=== PATIENT | female | born 1930 | race Caucasian/White ===

== ENCOUNTER 2016-09-21 20:04 | Emergency (ER) | payer MEDICARE, OTHER ==
[~2016-09-21] VITALS: Ht 170.2 cm; Wt 68.0 kg
[~2016-09-21 20:04] MED LIST: ACETAMINOPHEN325 M1 PO; ALENDRONATE SOD70 MG PO; ATIVAN0.5 MG PO; CALCIUM + VITA1 EACH PO; CALCIUM 600 +1 EACH PO; CEPHALEXIN500 MG PO; COLACE100 MG PO; DELTASONE20 MG PO; DOK100 MG PO; FENTANYL1 EAC1 TD; FERROUS SULFAT325 MG PO; HALOPERIDOL0.5 MG PO; HYDROCODON-ACE1 EA10 PO; HYDROCODON-ACE1 EAC3 PO; IRON55 MG PO; LEVAQUIN500 MG PO; LYRICA75 MG PO; MAGNESIUM OXID400 MG PO; MULTIVITAMINS1 EAC7 PO; NAPROSYN375 MG PO; NAPROXEN375 MG PO; NEOSPORIN OINTM30 GM TP; NITROSTAT0.4 MG SL; NYSTOP60 GM TP; OMEPRAZOLE40 MG PO; OXYCODONE HCL5 MG PO; OXYCODONE-ACET1 EAC3 PO; PEPCID40 MG PO; STOOL SOFTENER100 MG PO; TRAZODONE HCL50 MG PO; TRIAMCINOLONE A15 G2 TOP; VITAMIN D31000 UNI1 PO; ZOFRAN ODT4 MG PO
[2016-09-21] MEDS ORDERED: NORVASC5 MG PO (20:19)
[2016-09-21] MEDS ORDERED: SERTRALINE HCL100 MG PO (20:20)
[2016-09-21] MEDS ORDERED: ACID CONTROL150 MG PO (20:20)
[2016-09-21] MEDS ORDERED: SENNA-DOCUSATE1 EAC1 PO (20:21)
[2016-09-21] MEDS ORDERED: MILK OF MA400 MG/5 M PO (20:22)
[2016-09-21] MEDS ORDERED: CLINDAMYCIN HC150 MG PO (20:28)
[2016-09-24] MEDS ORDERED: FOSAMAX70 MG PO (16:57)
[2016-09-24] MEDS ORDERED: NAPROSYN500 MG PO (16:58)
[2016-09-24] MEDS ORDERED: MELATONIN3 MG PO (17:00)
[2016-09-24] MEDS ORDERED: TYLENOL WITH C1 EACH PO (17:03)
[2016-09-24] MEDS ORDERED: D3 DOTS2000 UNIT PO (17:05)
== END 2016-09-21 20:41 | disposition home or self-care (01) ==
LOC: ED 20:04
DX: D23.72 Other benign neoplasm of skin of left lower limb, including hip (principal); L08.89 Other specified local infections of the skin and subcutaneous tissue; F03.90 Unspecified dementia, unspecified severity, without behavioral disturbance, psychotic disturbance, mood disturbance, and anxiety
CPT/HCPCS: 99283

== ENCOUNTER 2016-09-25 08:40 | Day surgery (SDC) | payer MEDICARE, OTHER ==
[~2016-09-25] VITALS: Ht 170.2 cm; Wt 71.7 kg
[~2016-09-25 08:40] MED LIST changes: +ACID CONTROL150 MG PO; +CLINDAMYCIN HC150 MG PO; +D3 DOTS2000 UNIT PO; +FOSAMAX70 MG PO; +MELATONIN3 MG PO; +MILK OF MA400 MG/5 M PO; +NAPROSYN500 MG PO; +NORVASC5 MG PO; +SENNA-DOCUSATE1 EAC1 PO; +SERTRALINE HCL100 MG PO; +TYLENOL WITH C1 EACH PO
--- NOTE | 2016-09-25 09:58 | NUR ---
assisted up to bsc voids small amt urine. returned to bed.
--- NOTE | 2016-09-25 10:02 | NUR ---
PT IS VERY ALERT, ORIENTED AND SPUNKY. SHE IS SUPPORTED BY HER 2 GRAND D-TOSHIA AND PATRIZIA. SHE WAS READY FOR THE DR TO COME NOW, AND WANTED TO GO. SHE EXPRESSED MILD UNHAPPINESS THAT SHE COULDN'T KEEP THE LESION BEING REMOVED TODAY. SHE HAS QUITE A SENSE OF HUMOR. PT DECLINED PRAYER. WILL FOLLOW NEEDED
--- NOTE | 2016-09-25 11:41 | NUR ---
PT ARRIVED TO DEPT PER WC. 2 GRANDDAUGHTERS ACCOMPANYING AND HELPING WITH ASSISTANCE.
--- NOTE | 2016-09-25 12:58 | NUR ---
09/25/16 1258 Lidya Chandra 1257 PATIENT ARRIVES TO PACU UNRESPONSIVE TO VERBAL OR TACTILE STIMULI. MASK AT 6 LITERS.
[2016-09-25] MEDS ORDERED: NORCO 5-325 TA1 EACH PO (13:47)
--- NOTE | 2016-09-25 14:46 | NUR ---
HAS TAKEN GLASS WATER AND ATE JELLO. DENIES PAIN OR NAUSEA. REQ TO GO HOME. UP TO BSC VOIDS QS. ASSISTED WITH DRESSING. ALBATERS HERE AND PT TO WC.
--- NOTE | 2016-09-28 08:50 | OR ---
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 PROCEDURE: Wide local excision of left thigh pleomorphic dermal sarcoma (9x 12 cm). ESTIMATED BLOOD LOSS: None. BRIEF HISTORY/INDICATIONS FOR PROCEDURE: Noah an 86-year-old female with significant dementia. In 2013, she had a skin lesion on the left in her midthigh. Her excisional biopsy came back up pleomorphic dermal sarcoma. The deep margin was positive. She was asked to see me in the office. I had a long talk with Tereso and her daughter and we all agreed that we would re-excise it under local anesthetic in the office. Generally, we would do this through a vertical incision, but because of her previous transverse incision, we opted to repeat transverse incision. The margins were closed. After a long discussion in the office, we again decided we would watch that area and come back and re-excise if necessary. In the meantime, she was moved over to [facility], one of our adult homes for people with dementia. The lesion had recurred, and unfortunately, it was 6 cm in diameter when it was brought up to the family. She had been back to her primary care provider who asked to come and see me once again. I explained to Tereso and her two granddaughters that this obviously was too large to excise in the office. Tereso does not seem to complain about it too much, but it is large enough it is rubbing on her leg and it was felt it would probably be gu to go ahead and excise it. We decided that we would have to do this over in the main OR under anesthesia with good lighting so we can develop skin flaps and so forth. I explained to Tereso and her granddaughters that of course there is risk to the surgery including but not limited to bleeding, infection, scarring, change in contour of the skin, as well as a recurrent pleomorphic dermal sarcoma in the same or another location. They had expressed their understanding and wished to proceed. DESCRIPTION OF PROCEDURE: I met with Tereso and her two granddaughters along with our nurse in our preoperative area. It was very easy obviously to see this lesion that is large, almost the size of a tennis ball. We marked out it appropriately. Tereso Electronically Signed By: NOEMI ROGERS MD 09/28/16 0850 PATIENT NAME: TERESO CHUA OPERATIVE REPORT DATE OF : 28 PHYSICIAN: NOEMI ROGERS MD REPORT #: [id number] REPORT IS CONFIDENTIAL AND NOT TO BE RELEASED WITHOUT AUTHORIZATION [facility] [address] [place] [id number] Signed was then taken to the operating room and placed in the supine position with appropriate padding and monitoring. She was placed under general anesthesia with LMA. She was given preoperative antibiotics along with subcutaneous heparin. SCDs were utilized on the opposite leg. We propped the left leg up with pillows and it was prepped and draped in the usual sterile fashion. The lesion measured 6 cm transversely so we gave her 1.5 cm margins on either side and developed our incision vertically along the length of the inner thigh about 12 cm. The wound was then developed with a knife and carried down through the soft tissues all the way down to the fascia with the help of the cautery. Thus, all the tissue was removed right down to the fascia overlying the muscle. After this, we developed the midportion of each skin edge with the cautery along the edge of the fascia to develop a flap. We had marked the specimen as well and passed it off the field. We had injected local anesthetic along the length of the incision. The wound was irrigated and suctioned out until clear. We then brought the dermis together with interrupted 3-0 Monocryl sutures. The skin edges were reapproximated with a running 6-0fast absorbing plain gut suture. Dry gauze was applied over the incision. We wrapped her thigh gently with a 4-inch Paco wrap. After this, Tereso was awakened from her anesthesia and extubated in the OR and taken to the recovery room in stable condition. MD JENNY Vallejo/Nola /[id number] cc: Dr. Eze Rogers MD Electronically Signed By: NOEMI ROGERS MD 09/28/16 0850 PATIENT NAME: TERESO CHUA OPERATIVE REPORT DATE OF : 29 PHYSICIAN: NOEMI ROGERS MD REPORT #: [id number] REPORT IS CONFIDENTIAL AND NOT TO BE RELEASED WITHOUT AUTHORIZATION
== END 2016-09-25 14:45 | disposition home or self-care (01) ==
LOC: OPS 08:40 → DS 08:40 → OPS 10:45 → DS 10:45 → OPS 14:45
PROVIDERS: Colon & Rectal Surgery
PROC: 0JBM0ZZ Excision of Left Upper Leg Subcutaneous Tissue and Fascia, Open Approach (ICD-10-PCS; principal; 2016-09-25 10:45)
DX: C49.22 Malignant neoplasm of connective and soft tissue of left lower limb, including hip (principal); K21.9 Gastro-esophageal reflux disease without esophagitis; M81.0 Age-related osteoporosis without current pathological fracture; M19.90 Unspecified osteoarthritis, unspecified site; G43.909 Migraine, unspecified, not intractable, without status migrainosus; G89.29 Other chronic pain; M79.7 Fibromyalgia; F03.90 Unspecified dementia, unspecified severity, without behavioral disturbance, psychotic disturbance, mood disturbance, and anxiety; G47.00 Insomnia, unspecified; F32.9 Major depressive disorder, single episode, unspecified; F41.9 Anxiety disorder, unspecified; D64.9 Anemia, unspecified; Z90.89 Acquired absence of other organs; Z87.440 Personal history of urinary (tract) infections; Z90.49 Acquired absence of other specified parts of digestive tract; Z90.710 Acquired absence of both cervix and uterus; Z98.890 Other specified postprocedural states; Z88.0 Allergy status to penicillin; Z88.2 Allergy status to sulfonamides; Z88.1 Allergy status to other antibiotic agents
CPT/HCPCS: 01250; 88307; J0690; J1644; J2250; J3010; J7120

== ENCOUNTER 2018-06-20 14:29 | Emergency (ER) | payer MEDICARE, OTHER ==
[~2018-06-20] VITALS: Ht 170.2 cm; Wt 71.7 kg
[~2018-06-20 14:29] MED LIST changes: +NORCO 5-325 TA1 EACH PO
== END 2018-06-20 15:55 | disposition home or self-care (01) ==
LOC: ED 14:29
DX: Z04.3 Encounter for examination and observation following other accident (principal); F03.90 Unspecified dementia, unspecified severity, without behavioral disturbance, psychotic disturbance, mood disturbance, and anxiety; Z88.0 Allergy status to penicillin; Z88.5 Allergy status to narcotic agent; Z88.8 Allergy status to other drugs, medicaments and biological substances; Z79.899 Other long term (current) drug therapy
CPT/HCPCS: 99283

== ENCOUNTER 2018-08-04 21:32 | Inpatient (IN) | payer MEDICARE, OTHER ==
[~2018-08-04] VITALS: Ht 170.2 cm; Wt 61.5 kg
[~2018-08-04 21:32] MED LIST changes: -SERTRALINE HCL100 MG PO; +SERTRALINE HCL50 MG PO
[2018-08-04] MEDS ORDERED: ACETAMINOPHEN500 M1 PO (22:13)
--- NOTE | 2018-08-05 00:10 | NUR ---
RECEIVED PT FROM ED VIA STRETCHER. TRANSFERRED TO BED USING HOVER MAT AND 4 PERSON ASSIST. PT MOANING AND C/O LEFT HIP PAIN. POSITINED PT WITH PILLOWS TO MAINTAIN ALIGNMENT. CANELA PATENT DRAINING YELLOW URINE. HEEL PROTECTORS PLACED. GRANDDAUGHTER, JUNE IN THE ROOM. SIDE RAILS UP FOR PT SAFETY. CALL LIGHT IN REACH.
--- NOTE | 2018-08-05 00:55 | NUR ---
PATIENT REPORTS 15/10 PAIN IN HER LEFT HIP. PATIENT GIVEN PRN PAIN MEDICATION PER ORDER. PATIENT REPOSITIONED IN BED. PATIENTS CHARI REMAINS ON THE ROOM. IV IN FUSING. CALL LIGHT IN REACH.
--- NOTE | 2018-08-05 02:24 | NUR ---
PT RESTING IN BED WITH EYES CLOSED. RR 16 CPOX 98% O2 1LNC IN PLACE. CALL LIGHT IN REACH.
--- NOTE | 2018-08-05 05:01 | NUR ---
PATIENTS VITALS TAKEN RECORDED. CANELA EMPTIED AND OUPUT RECORDED. PATIENT REMAINS NPO. PATIENT REMAINS ON 1L VIA NC. CPOX IN USE. STUDENT RN IN ROOM TO ADMIN PRN PAIN MEDICATION FOR "25/10 PAIN IN HER HIP".
--- NOTE | 2018-08-05 05:14 | NUR ---
IN TO CHECK ON PT, SEEMED TO BE RESTING COMFORTABLY UNTIL SHE TRIED TO REPOSITION HERSELF. PT STATES PAIN IS 25/10 IN THE LEFT HIP. PRN PAIN MEDICATION ADMINISTERED. PT ORIENTED TO SELF ONLY. REMINDED PT THAT SHE FELL LAST NIGHT AND BROKE HER HIP. CPOX READS 98% ON 1L NC. RR 17, EVEN AND UNLABORED. CALL LIGHT IN REACH.
--- NOTE | 2018-08-05 06:01 | NUR ---
PT RESTED WELL SINCE ARRIVING TO THE FLOOR. PT ON BED REST. PRN PAIN MEDICATION X 2. CANELA PATENT. PATIENT ORIENTED TO SELF, NOT PLACE OR TIME.
--- NOTE | 2018-08-05 07:44 | NUR ---
REPORT RECIEVED, PT STATES HER PAIN IS BAD AND SHE WAS MEDICATED ORDERED. CPOX REMAINS IN PLACE AND HER SAT IS 98%. CALL MOFFETT IS WITHIN REACH AND HER CALL MOFFETT WAS TURNED ON.
--- NOTE | 2018-08-05 08:12 | NUR ---
PT RESTING IN BED AND WAS JUST SEEN BY DR MOFFETT. PT STATES HER PAIN HAS IMPROVED SINCE SHE WAS LAST MEDICATED FOR PAIN. BED ALARM IS ON AND CALL BETINA WITHIN REACH.
--- NOTE | 2018-08-05 08:19 | NUR ---
CALLED TO NOTIFY OF CONSULT FOR POSSIBLE SURGERY LATER THIS AM.
--- NOTE | 2018-08-05 09:25 | NUR ---
ENID SHOLA CALLED TO GIVE TELEPHONE CONSENT FOR SURGERY SHE IS [place]A AND OUT OF STATE. NEID SAID OK TO UPDATE JUNE HER DAUGHTER, SHE WILL STAY IN COMMUNICATION.
--- NOTE | 2018-08-05 11:14 | NUR ---
PT TAKEN TO THE OR AT THIS TIME.
--- NOTE | 2018-08-05 13:04 | NUR ---
VISITED WITH PT BEFORE SURGERY. SHE HAS A LITTLE SPUNK AND LIKES TO JOKE. SHE WAS NOT JOKING HOWEVER WHEN IT CAME TO HER PAIN, SHE SAID IT WAS BAD. I MENTIONED TO HOLLIE MALDONADO-SHE MENTIONED THAT OR STAFF WILL BE IN SOON AND HELP WITH PT'S PAIN. I TOLD HER THAT HELP WILL ARRIVE SOON. SHE SMILED AND SAID, "WILL IT BE A BIG GLASS OF BEER"? HAD PRAYER WITH PT, WILL FOLLOW NEEDED
--- NOTE | 2018-08-05 13:44 | NUR ---
08/05/18 1344 Sheets,[place] 1323 PT ARRIVED TO PACU ON 6L VIA MASK, RESP EVEN AND UNLABORED. VSS. 1338 PT WAKES TO TACTILE STIMULI AND DENIES PAIN. O2 SAT 100%, O2 MASK REMOVED. 1343 WARM BLACKET GIVEN. PT REPORT PAIN, UNABLE TO RATE, REPORTS "PLENTY."
--- NOTE | 2018-08-05 14:21 | NUR ---
PATIENT IS IN SURGERY.
--- NOTE | 2018-08-05 15:10 | NUR ---
1440: PT RETURNED TO MED-SURG POST SURGERY AND PACU STAY. PT DROWSY, AWAKENS BREIFLY AND FALLS RIGHT BACK TO SLEEP. LEFT HIP DRESSING CDI X2 WITH ICE IN PLACE, SCD'S ON AND RUNNING, HEEL PROTECTORS PLACED. PULSE OX REPLACED AND VITAL SIGNS CHECKED. SAT ON ROOM AIR IS 93% ON 2L VIA NC. PEDAL PULSE IS WEAK BUT PRESENT AND THE SAME ON THE RIGHT FOOT. PT APPEARS IN NO DISTRESS AT THIS TIME. CANELA TO GRAVITY, BED ALARM TURNED ON AND CALL MOFFETT WITHIN REACH, BED IN THE LOW POSITION.
--- NOTE | 2018-08-05 15:50 | NUR ---
PT AWAKES TO VOICE AND DENIES ANY PAIN. CMS INTACT ON HER LEFT FOOT AND A PEDAL PULSE NOTED.PT'S GRANDAUGHTER AT BEDSIDE.
--- NOTE | 2018-08-05 15:52 | NUR ---
DRESSINGS REMAIN CDI TO HER LEFT HIP.
--- NOTE | 2018-08-05 16:36 | NUR ---
PT'S BP CONTINUES RUNNING LOW. DR GORDILLO NOTIFIED AND NEW ORDERS GIVEN.
--- NOTE | 2018-08-05 16:52 | EKG ---
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
--- NOTE | 2018-08-05 16:52 | EKG ---
[facility] [address] [place] [address] Signed Sinus rhythm with premature atrial complexes Left axis deviation Minimal voltage criteria for LVH, may be normal variant Septal infarct (cited on or before 18-SEP-2016) Possible Lateral infarct , age undetermined Abnormal ECG When compared with ECG of 18-SEP-2016 11:49, premature atrial complexes are now present Borderline criteria for Lateral infarct are now present Confirmed by BRIAN GORDILLO MD ([id number]) on 08/05/2018 4:52:36 PM Electronically Signed By: BRIAN GORDILLO MD 08/05/18 1652 PATIENT NAME: TERESO CHUA Electrocardiogram DATE OF : 28 PHYSICIAN: BRIAN GORDILLO MD REPORT #: [id number] REPORT IS CONFIDENTIAL AND NOT TO BE RELEASED WITHOUT AUTHORIZATION
--- NOTE | 2018-08-05 17:33 | NUR ---
PT DENIES ANY HIP PAIN AT THIS TIME. LR BOLUS COMPLETE AND IV NOW RUNNING LR AT 125ML/HR.
--- NOTE | 2018-08-05 17:43 | NUR ---
URINE OUTPUT 140ML, PT ALSO HAD 125 ML IN PACU. PT JUST RECEIVED A FLUID BOLUS AND IS NOW HAVING HER FIRST PO FLUIDS POST-OP.
--- NOTE | 2018-08-05 19:41 | NUR ---
REPORT RECEIVED, PT ALERT, RESTING IN BED WATCHING TV, IV FLUIDS INFUSING PER EMAR WNL, ON 2LNC, NO C/O SOB/CP, ON CPOX, O2 SAT 97%, HR 77, SURGICAL SITE VISUALIZED, DRESSING C/D/I, NO SIGNS OF DRAINAGE, ICE APPLIED TO AREA. NO C/O PAIN. NO REQUESTS AT THIS TIME, CALL LIGHT WITHIN REACH. BED ALARM ON.
--- NOTE | 2018-08-05 20:45 | NUR ---
IN ROOM TO ADMINISTER EVENING MEDS, PT AOX4, APPROPRIATE, PT TOLERATED PO MEDS, WELL. SCHEDULED PAIN MEDICINE PROVIDED, PT DID NOT RATE PAIN HOWEVER STATED "ITS THERE, MOSTLY IN MY BACK", PT'S VITALS TAKEN, PT'S BP NOTED TO BE 94/59, HR 72, DR. GORDILLO NOTIFIED OF PT'S BP, DR. GORDILLO STATED TO CONTINUE TO MONITOR WELL MONITOR URINE AND TO NOTIFY HIM IF PT DOES NOT VOID 2cc/KG EVERY FOUR HOURS. ASSESSMENT COMPLETE, PT'S LS CLEAR, DIMINISHED ON LEFT SIDE. PT ENCOURAGED TO CDB, SURGICAL SITE VISUALIZED, C/D/I, HEEL PROTECTORS ON, SCD'S ON. NO REQUESTS AT THIS TIME, CALL LIGHT WITHIN REACH. BED ALARM ON.
--- NOTE | 2018-08-05 23:00 | NUR ---
PT RESTING IN BED, EYES CLOSED, BREATHS EVEN, UNLABORED, ON 1LNC, O2 SAT WNL, IV FLUIDS INFUSING PER EMAR WNL. NO REQUESTS AT THIS TIME. BED ALARM ON.
--- NOTE | 2018-08-06 | NUR ---
PT RESTING IN BED VISITING WITH FAMILY, NO NEEDS AT THIS TIME, PT MORE CONFUSED, BUT ALERT, DISORIENTED TO SURROUNDINGS, CALL LIGHT WITHIN REACH. FALL PRECAUTIONS IN PLACE. IV FLUIDS INFUSING PER EMAR WNL. FALL PRECAUTIONS IN PLACE. BED ALARM ON.
--- NOTE | 2018-08-06 01:31 | NUR ---
PT PULLED OFF HER PULSE OX AND O2 NASAL CANNULA. I PUT BOTH BACK ON HER. PT NEEDS NOTHING MORE AT THIS TIME. BEDSIDE TABLE AND CALL LIGHT IN REACH.
--- NOTE | 2018-08-06 01:46 | NUR ---
IN ROOM TO ADMIN SCHEDULED MEDS, PT AWAKE, DISORIENTED, REORIENTATION PROVIDED, PT ASKING WHERE SHE IS AND WHY SHE IS HERE. PT'S FAMILY ABLE TO ASSIST IN REORIENTING PT WELL. PT WAS ABLE TO RATE PAIN, RATED PAIN 15/10, PT GIVEN PRN PAIN MEDICATION PER EMAR. IV FLUIDS INFUSING PER EMAR WNL. VSS, CALL LIGHT WITHIN REACH. BED ALARM ON.
--- NOTE | 2018-08-06 02:15 | NUR ---
IN ROOM TO ASSESS PT'S URINE OUTPUT, PT HAS ONLY HAD 20 MLS OF URINE OUT IN THE LAST 4 HOURS, CANELA CATHETER OPERATING WNL, BLADDER SCAN COMPLETE AND SHOWED 6ML'S. DR. GORDILLO CALLED AND NOTIFIED OF PT'S LOW URINE OUTPUI, RECEIVED AN ORDER FOR A 500 ML BOLUS TO BE ADMINISTERED OVER ONE HOUR AND TO CALL DR. GORDILLO BACK AFTER THE BOLUS IS COMPLETE WITH THE PT'S URINE OUTPUT OVER THAT ONE HOUR PERIOD. TORB.
--- NOTE | 2018-08-06 03:40 | NUR ---
IV BOLUS COMPLETE, PT VOIDED 5 ML AFTER IV BOLUS WAS COMPLETE, DR. GORDILLO NOTIFIED PER HIS REQUEST, DR. GORDILLO REQUESTED THAT THE PT'S CONTINUOUS RATE OF IV FLUIDS REMAIN THE SAME @ 125, AND THAT THE PT'S BP BE MONITORED AND IF THE PT'S SYSTOLIC BP BECOMES LOWER THAN 90 TO ADMINISTER A 500 ML BOLUS OF LR OVER AN HOUR AND TO RECHECK THE PT'S BP. IF THE PT'S SYSTOLIC BP REMAINS LOWER THAN 90 AFTER THE BOLUS THAN HE WOULD LIKE TO BE NOTIFIED, NO FURTHER ORDERS AT THIS TIME, TORB,
--- NOTE | 2018-08-06 04:55 | NUR ---
PT ALERT THIS SHIFT, SOME CONFUSION DURING LATE HOURS OF NIGHT RELATED TO SURROUNDINGS, PT ON RA NOW, CPOX IN PLACE, O2 SAT 94%, HR 70'S, PT'S BP HAS BEEN SOFT IN THE LOW 90'S SYSTOLIC, MD AWARE, CANELA CATH IN PLACE, PT HAS ALSO HAD VERY LOW URINE OUTPUT THIS SHIFT, MD AWARE, CONTINUING TO MONITOR BP AND UO. PT RECEIVING SCHEDULED TORADOL AND TYLENOL, PT RECEIVED PRN PAIN MEDICATION X1 THIS SHIFT RELATED TO LEFT HIP. INCISIONS IN LEFT HIP ARE C/D/I, SCD'S ON, HEEL PROTECTORS ON, CMS INTACT. BED ALARM ON.
--- NOTE | 2018-08-06 06:42 | NUR ---
DR. MOFFETT NOTIFIED AND UPDATED ON PT'S CONDITION RELATING TO PT'S LOW URINE OUTPUT AND HYPOTENSION. NO NEW ORDERS.
--- NOTE | 2018-08-06 07:10 | HP ---
[facility] [address] [place], [place] [address] Signed ADMISSION DATE: 08/04/2018 HISTORY OF PRESENT ILLNESS: Ms. Maza is an 88-year-old white female, resident of a local long-term care facility. She apparently tried to get out of bed without adequate assistance late last night and had a witnessed fall. After the fall, she had pain in her left hip and groin and was unable to ambulate. She was brought to the emergency room where x-rays revealed an intertrochanteric fracture of the left hip. At the present time, this appears to be her only complaint. PAST MEDICAL HISTORY: We will defer to the internal medicine weight loss sales consultant. She clearly has some level of dementia; however, she respond fairly appropriately to questioning today. CURRENT MEDICATIONS: The only medication I can find in her records provided is she takes Zofran intermittently. ALLERGIES: She has allergies to penicillin, morphine, oxycodone, amlodipine, and Cymbalta. PHYSICAL EXAMINATION: GENERAL: On examination, she is a pleasantly confused elderly white female, lying supine in bed. HEENT: Head, ears, eyes, nose, and throat do not show any evidence of craniofacial trauma. NECK: Nontender. CHEST AND ABDOMEN: Nontender and there is regular rhythm and the breath sounds appear equal. There are no abdominal findings. EXTREMITIES: The left leg is neither shortened nor externally rotated, but she is propped up on a couple of pillows and we elected not to move her around. She is able to move her toes on both feet and reports equal sensation in both feet. Her pedal pulses are difficult to discern on either side. IMAGING: Her x-rays were reviewed and they show an intertrochanteric fracture on the left. IMPRESSION: I discussed with Tereso and then via phone her granddaughter that our general recommendation is to stabilize this fracture surgically. I specifically explained to Electronically Signed By: MICHEL GEE MD 08/06/18 0710 PATIENT NAME: TERESO MAZA HISTORY AND PHYSICAL DATE OF : 28 REPORT #: [id number] PHYSICIAN: MICHEL GEE MD PCP: RAJ WALKER MD REPORT IS CONFIDENTIAL AND NOT TO BE RELEASED WITHOUT AUTHORIZATION [facility] [address] [place] [id number] Signed the daughter that the primary goal even in someone who is a minimal ambulator is for pain relief. I did explain to the daughter all the potential risks and comorbidities, particularly as they are associated with surgery on an 88-year-old. After explaining all the potential risks and complications, the granddaughter was comfortable with us proceeding with the hip pinning. I also explained this to Tereso and she said she thought it was okay to fixing, but she said she was afraid of refixing, she might just fall down and break it again. I told her I absolutely agree that fixing one broken hip is not a guarantee that she will not have subsequent injuries in the future. Michel Gee MD WFB/MODL /[id number] Copies: ~ Electronically Signed By: MICHEL GEE MD 08/06/18 0710 PATIENT NAME: TERESO MAZA HISTORY AND PHYSICAL DATE OF : 28 REPORT #: [id number] PHYSICIAN: MICHEL GEE MD PCP: RAJ WALKER MD REPORT IS CONFIDENTIAL AND NOT TO BE RELEASED WITHOUT AUTHORIZATION
--- NOTE | 2018-08-06 07:10 | OR ---
[facility] [address] [facility] [place], [place] [address] Signed DATE OF OPERATION: 08/05/2018 SURGEON: Michel Gee MD PREOPERATIVE DIAGNOSIS: Intertrochanteric fracture, left proximal femur. POSTOPERATIVE DIAGNOSIS: Intertrochanteric fracture, left proximal femur. PROCEDURE: Intramedullary nail fixation with a TFN nail. ANESTHESIA: General I think with a femoral block. SPECIMENS: None. COMPLICATIONS: None. ESTIMATED BLOOD LOSS: Minimal. WHAT WAS DONE: The patient was taken to the operating room. After anesthesia was induced, the patient placed on the fracture table and the fracture reduced with longitudinal traction and neutral rotation. 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 However, once we felt we got good AP and oblique views, the patient was prepped and draped in a routine sterile fashion. Incision was made at the tip of the greater trochanter and the curved awl was introduced. We then were able to introduce the guide opal and navigated down the femoral canal. We then reamed proximally with a large reamer. We then passed a 10 mm short TFN nail, secured it proximally with a 100 mm spiral blade and distally with a single 5.0 screw. This appeared to give us excellent alignment and position, both of the fracture fragment and internal fixation devices on the obliques and AP view. The wound was gently irrigated and closed in standard fashion. Sterile dressings applied. She was awakened and taken to recovery room where she arrived in stable condition. Counts were correct and antibiotic protocols were followed. Electronically Signed By: MICHEL GEE MD 08/06/18 0710 PATIENT NAME: TERESO CHUA OPERATIVE REPORT DATE OF : 28 REPORT #: [id number] PHYSICIAN: MICHEL GEE MD PCP: RAJ WALKER MD REPORT IS CONFIDENTIAL AND NOT TO BE RELEASED WITHOUT AUTHORIZATION [address] [place], [place] [address] Signed Michel Gee MD WFFrantz/MODL /[id number] Copies: ~ Electronically Signed By: MICHEL GEE MD 08/06/18 0710 PATIENT NAME: TERESO CHUA OPERATIVE REPORT DATE OF : 28 REPORT #: [id number] PHYSICIAN: MICHEL GEE MD PCP: RAJ WALKER MD REPORT IS CONFIDENTIAL AND NOT TO BE RELEASED WITHOUT AUTHORIZATION
--- NOTE | 2018-08-06 07:10 | NUR ---
BEDSIDE HANDOFF REPORT RECEIVED FROM CORE CLEANER RN. PT RESTING QUIETLY IN BED. BED ALARM IN PLACE.
--- NOTE | 2018-08-06 08:50 | NUR ---
PT RESTING IN BED. PT ALERT, DISORIENTED TO DATE AND PLACE, BED ALARM IN PLACE. PT ON ROOM AIR, LUNG SOUNDS CLEAR. PT DENIES PAIN . IV FLUIDS INFUSING LR AT 15 ML/HR, LOW URINE OUTPUT. CMS INTACT, WITHOUT EDEMA. PT DENIES NAUSEA, TOLERATING REGULAR DIET. DISCUSSED PLAN OF CARE FOR THE DAY. PT DENIES OTHER NEEDS AT THIS TIME.
--- NOTE | 2018-08-06 09:09 | NUR ---
PT CONTINUES TO HAVE LOW URINE OUTPOUT, 18 ML IN CATHETER SINCE 0600. MD NOTIFIED, ORDER TO BLADDER SCAN, COMPLETED, BLADDER SCAN VOLUME 0ML, MD NOTIFIED, VERBAL ORDER TO GIVE 250 ML LR BOLUS AND THEN TO REPORT URINE OUTPUT AFTER BOLUS COMPLETED.
--- NOTE | 2018-08-06 12:54 | NUR ---
PT RESTING IN BED. PT COMPLAINT OF PAIN ALL OVER, DISCUSSED PAIN MANAGEMENT, PT TO RECEIVE TYLENOL AT 1300. PT ON ROOM AIR, LUNG SOUNDS SUSANNA.R URINE OUTPUT CONTINUES TO BE LOW, WILL CONTINUE TO MONITOR. CMS INTACT, LEFT HIP DRESSINGS CDI, ICE PACK IN PLACE. PT DENIES OTHER NEEDS AT THIS TIME.
[2018-08-06] MEDS ORDERED: DESITIN57 GM TOP (13:21)
[2018-08-06] MEDS ORDERED: ZOFRAN4 MG PO (13:23)
--- NOTE | 2018-08-06 13:24 | NUR ---
MED REC COMPLETE
--- NOTE | 2018-08-06 13:25 | NUR ---
MED REC COMPLETE
--- NOTE | 2018-08-06 18:00 | NUR ---
PT COMPLAINT OF INCREASED LEFT HIP PAIN. ICE PACK PROVIDED. PT GIVEN SECOND HALF OF NORCO TAB PER ORDER. DINNER ORDERED FOR PT. PT URINE OUTPUT 60 ML/HR. PT DENIES OTHER NEEDS AT THIS TIME.
--- NOTE | 2018-08-06 18:19 | NUR ---
PT ALERT, CONFUSED THROUGHOUT SHIFT. PT ON ROOM AIR, LUNG SOUNDS CLEAR. PT WITH POOR APPETITE, PT ENJOYS ENSURE. PT NOT ABLE TO WORK WITH P.T., PAIN WITH MOVEMENT. NORCO STARTED FOR PAIN. PT WITH LOW URINE OUTPUT, RECEIVED 250 ML BOLUS, IV FLUIDS DECREASED TO 65ML/HR. CANELA CATH, PT WITH SEVERAL BM SMEARS.
--- NOTE | 2018-08-06 18:20 | NUR ---
DR. GORDILLO NOTIFIED OF URINE OUTPUT 60 ML, NO NEW ORDERS AT THIS TIME.
--- NOTE | 2018-08-06 20:09 | NUR ---
PATIENT COMPLAINING OF A LOT PAIN, 10/24. TALKED WITH AND HE IS GOING TO CHANGE THE DOSING.
--- NOTE | 2018-08-06 20:34 | NUR ---
VITALS DONE AND CHARTED. GAVE HER DRINKS OF STRAWBERRY ENSURE. SHE TOOK A FEW BITES OF GRILLED CHEESE SAND. BEDSIDE TABLE AND CALL LIGHT IN REACH. PER RN SHIRA I PUT HER ON 1 L O2 N/C
--- NOTE | 2018-08-06 20:42 | NUR ---
PAIN MED ORDERS CHANGED AND 2 NORCO GIVEN FOR 10/10 LEFT HIP PAIN.
--- NOTE | 2018-08-06 21:48 | NUR ---
PT CALLED FOR HELP. SHE WANTED TO TAKE HER IV OUT AND SAID SHE DID NOT NEED IT. REMINDED PT WHY IT IS THERE AND REWRAPED IT. SHE DENIES FURTHER NEEDS. CALL LIGHT IS CLOSE AND BED ALARM IS ON.
--- NOTE | 2018-08-06 21:51 | NUR ---
PT TOOK OF 02 AGAIN. I WAS ABLE TO PUT IT BACK ON WITH NO ARGUMENT.
--- NOTE | 2018-08-06 22:42 | NUR ---
CALLED AGAIN, PATIENT SAYS SHE IS STILL IN PAIN AND HER URINE OUTPUT WAS ONLY 50MLS IN THE LAST 4.5/HRS. READVISED ME TO WATCH HER VITALS AND JUST MAKE SURE HER IV KEPT RUNNING AND MONITOR HER STATUS FOR NOW. THIS NURSE VERBALIZED UNDERSTANDING. SATS CURRENTLY 94% ON ROOM AIR.
--- NOTE | 2018-08-07 00:24 | NUR ---
PATIENT HAS THREATEN STAFF, BUT ONLY VERBALLY, STILL AWAKE AT THIS TIME. HOSTILE VERBALLY TO FAMILY WELL. PATIENT VERBALLY ABUSIVE BEFORE AND AFTER BEING REPOSITIONED.
--- NOTE | 2018-08-07 00:35 | NUR ---
PATIENT GIVEN 2 NORCO FOR WHAT SHE DESCRIBES 15/10 LEFT HIP PAIN.
--- NOTE | 2018-08-07 02:05 | NUR ---
repositioned pt in bed to her comfort. bedside table and call light in reach.
--- NOTE | 2018-08-07 04:11 | NUR ---
PATIENT ASKING FOR PAIN MEDICATION, 2 PO NORCO GIVEN. PATIENT REPOSITIONED. PAIN IS FINALLY DOWN TO 6/10 PAIN IN HER LEFT HIP.
--- NOTE | 2018-08-07 04:25 | NUR ---
MD IS AWARE OF DECREASED URINEOUT.
--- NOTE | 2018-08-07 07:29 | NUR ---
BEDSIDE REPORT RECEIVED FROM SHIRA BROWNE. PT APPEARS COMFORTABLE AT THIS TIME. DRESSING CDI. BED ALARM IS ON AND CALL MOFFETT WITHIN REACH.
--- NOTE | 2018-08-07 08:26 | NUR ---
LEFT WRIST IV STARTED BY ASHLEE NEAL STUDENT NURSE.
--- NOTE | 2018-08-07 08:39 | NUR ---
PT RESTING IN BED WITH NO COMPLAINTS OF PAIN AT THIS TIME. DRESSINGS REMAIN CDI. URINE OUTPT HAS BEEN DECREASED AND DR GORDILLO HAD BEEN NOTIFIED OF THIS BY THE PRIOR SHIFT. DR MOFFETT WAS PRESENT IN MED-[facility] THIS AM AND I NOTIFIED HIM OF HER URINE OUTPUT WELL. PT NOW SITTING UP IN BED EATING BREAKFAST. THE PT HAD PULLED HER IV PRIOR TO ME COMING ON SHIFT. A NEW IV WAS STARTED BY THE STUDENT NURSE WITH THE HELP OF HER INSTRUCTOR. IV HAS BEEN WRAPPED TO HELP PREVENT HER FROM PULLING IT AGAIN.
--- NOTE | 2018-08-07 10:52 | NUR ---
PT WORKING WITH PHYSICAL THERAPY AT THIS TIME.
--- NOTE | 2018-08-07 12:15 | NUR ---
Oxygen saturation was at 87 at 1000. Changed pt to nasal cannula at 1 liter. O2 stat increased to 93. Patient may take nasal cannula off from agitation.
--- NOTE | 2018-08-07 12:57 | NUR ---
1240: PT SLEEPING AT THIS TIME.
--- NOTE | 2018-08-07 14:08 | NUR ---
PT RESTING IN BED AND DENIES PAIN AT THIS TIME. PT ATE A VERY SMALL AMOUNT OF HER LUNCH.
--- NOTE | 2018-08-07 15:21 | NUR ---
PT SLEEPING AT THIS TIME.
--- NOTE | 2018-08-07 15:56 | NUR ---
ROLA DC'D ORDERED AND 90 ML OF CLEAR YELLOW URINE EMPTIED WITH A SMALL AMOUNT OF SEDIMENT NOTED. PT CLEANED, ATTENDS PLACE AND REPOSITIONED PT IN BED. SAT 88% SHE REMOVED HER O2. SAT INCREASED TO 93% ON 1L AT THIS TIME. CALL MOFFETT TURNED BACK ON AND CALL MOFFETT IS WITHIN REACH. PT QUICKLY BACK TO SLEEP AFTER WORKING WITH HER.
--- NOTE | 2018-08-07 16:11 | NUR ---
IV FLUID STOPPED ORDERED.
--- NOTE | 2018-08-07 18:01 | NUR ---
PT'S ATTENDS CHECKED AND IT REMAINS DRY AT THIS TIME. SAT 94% ON 1L. LEFT LEG DRESSINGS REMAIN CDI. BED ALARM IS ON AND CALL MOFFETT WITHIN REACH.
--- NOTE | 2018-08-07 18:47 | NUR ---
PT HAS NOT VOIDED SINCE THE CANELA WAS PULLED. PT BLADDER SCANNED FOR 42 ML.
--- NOTE | 2018-08-07 20:11 | NUR ---
MD AWARE OF DECREASED URINE OUTPUT. 2 NORCO GIVEN FOR 10/10 LT HIP PAIN.
--- NOTE | 2018-08-07 20:15 | NUR ---
REBAR WORKER NOTE. PRIMARY RN IN ROOM, PT PULLED UP IN BED. CALL LIGHT IN REACH. BED ALARM ACTIVE. ROOM IN VIEW OF RN STATION. WHITE BOARD UPDATED.
--- NOTE | 2018-08-07 22:40 | NUR ---
PT has called out a few times. I helped her drink her ensure and water, readjusted her in the bed and have checked her brief which has remainned dry since shift change. I put an ice pack on her left hip for a while and she stated "i guess it has helped a little". She is currently sleeping at the moment.
--- NOTE | 2018-08-08 00:40 | NUR ---
PATIENT RESTING QUIETLY, RESPIRATIONS REGULAR AND EVEN, AT A RAT OF 18, EYES CLOSED.
--- NOTE | 2018-08-08 02:53 | NUR ---
PATIENT RESTING QUIETLY. EYES CLOSED, RESPIRATIONS REGULAR AND EVEN AT 18.
--- NOTE | 2018-08-08 04:19 | NUR ---
PATIENT HAVING 5/10 LT HIP PAIN AND GIVEN 2 NORCO. ORAL CARE DONE. ATTENDS CHANGED AND PATIENT FINALLY HAD A LARGE INCONTINENT VOID AND 2 STOOL SMEARS.
--- NOTE | 2018-08-08 07:26 | NUR ---
BEDSIDE REPORT RECIEVED FROM SHIRA BROWNE. PT RESTING IN BED, CALL LIGHT IS WITHIN REACH AND BED ALARM IS ON.
--- NOTE | 2018-08-08 08:03 | NUR ---
PT RESTING IN BED AND APPEARS IN NO DISTRESS AT THIS TIME. CALL MOFFETT WITHIN REACH AND BED ALARM IS ON.
--- NOTE | 2018-08-08 08:18 | NUR ---
PATIENT WAS IN BED, CONFUSED, THIS ADVISORY APPLICATION DEVELOPER TALKED WITH THE PATIENT AND WAS ABLE TO CALM HER, SHE IS CURRENTLY WORKING ON EATING HER BREAKFAST. ORDERED TO GET PATIENT UP IN CHAIR ARE IN, TALKED TO NURSE ABOUT THIS NURSE SAID THAT PATIENT HAS BEEN BEDBOUND AND WE WILL GIVE IT A TRY
--- NOTE | 2018-08-08 09:20 | NUR ---
PATIENT SITTING UP IN BED. CALL LIGHT IN REACH. NO FURTHER NEEDS AT THIS TIME.
--- NOTE | 2018-08-08 10:24 | NUR ---
DR GORDILLO CALLED AND NOTIFIED OF THE PT'S BP AND URINE OUTPUT. NEW ORDERS GIVEN.
--- NOTE | 2018-08-08 11:47 | NUR ---
bp 96/50 after iv bolus complete.
[2018-08-08] MEDS ORDERED: CEPHALEXIN500 MG PO (11:50)
[2018-08-08] MEDS ORDERED: HYDROCODON-ACE1 EA11 PO (11:52)
--- NOTE | 2018-08-08 12:03 | NUR ---
PT INCONT OF URINE AND STOOL AT THIS TIME. PT CLEANED, BARRIER CREAM APPLIED AND A FRESH ATTENDS PLACED. PT REPOSITIONED AT THIS TIME. LEFT BUTTOX AND COCCYX LIGHT RED IN COLOR AND BLANCHABLE. PT REPOSITIONED AT THIS TIME.
--- NOTE | 2018-08-08 13:46 | NUR ---
REPORT CALLED TO LEON BROWNE AT [facility]. DISCHARGE INSTRUCTIONS AND ORDERS WILL BE SENT WITH THE PT ON DISCHARGE.
--- NOTE | 2018-08-08 14:10 | NUR ---
1410: PT TRANSFERED OUT TO [facility] VIA AMBULANCE TRANSFER. PERSONAL BELONGING AND TRANSFER ORDERS SENT WITH THE AMBULANCE CREW. PT'S June CALLED AND NOTIFIED OF THE TRANSFER.
== END 2018-08-08 14:10 | DRG 481 ==
LOC: ED 21:32 → MS 21:33
PROVIDERS: ADMIT Orthopaedic Surgery
PROC: 3E0T3BZ Introduction of Anesthetic Agent into Peripheral Nerves and Plexi, Percutaneous Approach (ICD-10-PCS; 2018-08-05)
PROC: 3E0T33Z Introduction of Anti-inflammatory into Peripheral Nerves and Plexi, Percutaneous Approach (ICD-10-PCS; 2018-08-05)
PROC: 0QH736Z Insertion of Intramedullary Internal Fixation Device into Left Upper Femur, Percutaneous Approach (ICD-10-PCS; principal; 2018-08-05 12:00)
DX: S72.142A Displaced intertrochanteric fracture of left femur, initial encounter for closed fracture (principal); F03.91 Unspecified dementia, unspecified severity, with behavioral disturbance; N30.00 Acute cystitis without hematuria; G89.18 Other acute postprocedural pain; K21.9 Gastro-esophageal reflux disease without esophagitis; F41.9 Anxiety disorder, unspecified; R34 Anuria and oliguria; D64.9 Anemia, unspecified; B96.20 Unspecified Escherichia coli [E. coli] as the cause of diseases classified elsewhere; W06.XXXA Fall from bed, initial encounter; Y92.199 Unspecified place in other specified residential institution as the place of occurrence of the external cause; Z79.83 Long term (current) use of bisphosphonates; Z79.899 Other long term (current) drug therapy; Z88.5 Allergy status to narcotic agent; Z88.0 Allergy status to penicillin; Z88.8 Allergy status to other drugs, medicaments and biological substances
CPT/HCPCS: 01210; 36415; 51702; 64447; 71045; 72170; 73501; 73502; 76942; 80048; 80053; 81001; 83880; 85025; 85610; 85730; 86850; 86900; 86901; 87077; 87088; 87186; 93005; 93010; 94762; 97110; 97116; 99285-25; C1713; J0690; J0696; J1885; J1940; J2405; J3010; J7030; J7120